=== PATIENT | male | born 1995 | race Hispanic/Latino ===

== ENCOUNTER 2017-05-26 16:57 | Emergency (ER) | payer OTHER ==
[~2017-05-26] VITALS: Ht 175.3 cm; Wt 69.1 kg
[2017-05-26] MEDS ORDERED: IBUPROFEN 600 MG TAB PO STA (17:35)
[2017-05-26] MEDS ORDERED: ACETAMINOPHEN 325 MG TAB PO ONE (17:45)
[2017-05-26 17:58] VITALS: BP 135/80
== END 2017-05-26 18:00 | disposition home or self-care (01) ==
LOC: FSED 16:57
DX: J02.9 Acute pharyngitis, unspecified (principal); R52 Pain, unspecified; Z20.828 Contact with and (suspected) exposure to other viral communicable diseases
CPT/HCPCS: 87400; 99283